=== PATIENT | male | born 1980 | race Caucasian/White ===

== ENCOUNTER 2017-04-05 11:35 | Emergency (ER) | payer OTHER, BC ==
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
[2017-04-05] MEDS ORDERED: KETOROLAC TROMETHAMINE 60 MG/2 ML SDV IM ONE (15:14)
[2017-04-05] MEDS ORDERED: METHOCARBAMOL 500 MG TABLET PO ONE (15:14)
[2017-04-05 15:47] VITALS: BP 137/82
== END 2017-04-05 15:47 | disposition home or self-care (01) ==
LOC: ER 11:35
DX: S39.012A Strain of muscle, fascia and tendon of lower back, initial encounter (principal); M62.830 Muscle spasm of back; M25.511 Pain in right shoulder; M25.521 Pain in right elbow; M79.661 Pain in right lower leg; V85.5XXA Driver of special construction vehicle injured in nontraffic accident, initial encounter; Y99.0 Civilian activity done for income or pay; R42 Dizziness and giddiness; F17.200 Nicotine dependence, unspecified, uncomplicated
CPT/HCPCS: 99284; 96372; 73080; 73564; 72110; 73030; 73590; 70450; J1885